=== PATIENT | male | born 1965 | race Caucasian/White ===

== ENCOUNTER 2018-09-11 10:56 | Outpatient (CLI) | payer OTHER ==
[2018-09-11 11:39] LABS: BASOPHILS % (AUTO) 0.5 % (0.0-2.0); EOSINOPHILS # (AUTO) 1.5 K/uL (0-0.4); EOSINOPHILS % (AUTO) 18.9 % (0.0-4.0); HEMATOCRIT 43.3 % (36-52); HEMOGLOBIN 14.8 g/dL (12.0-18.0); LYMPHOCYTES # (AUTO) 1.4 K/uL (2.0-11.5); MEAN CORPUSCULAR HEMOGLOBIN 31 pg (27-31); MEAN CORPUSCULAR HGB CONC 34 g/dL (33-37); MEAN CORPUSCULAR VOLUME 89.9 fL (80-94); MONOCYTES # (AUTO) 0.7 K/uL (0.8-1.0); MONOCYTES % (AUTO) 8.5 % (1.7-9.3); NEUTROPHILS # (AUTO) 4.3 K/uL (1.8-7.7); NEUTROPHILS % (AUTO) 54.1 % (42.2-75.2); PLATELET COUNT (AUTO) 318 K/uL (140-450); RED BLOOD CELL COUNT(AUTO) 4.82 MIL/uL (4.20-6.10); RED CELL DISTRIBUTION WIDTH 13.4 % (11.6-13.7); WHITE BLOOD COUNT (AUTO) 7.9 K/uL (4.8-10.8)
[2018-09-11 14:16] LABS: ALBUMIN 3.8 g/dL (3.4-5.0); ANION GAP 10.8 (8-16); CARBON DIOXIDE 27.6 mmol/L (21-32); CHOL/HDL RATIO 3.4 (1-4.5); CREATININE 0.9 mg/dL (0.7-1.3); POTASSIUM 4.4 mmol/L (3.5-5.1); TOTAL BILIRUBIN 0.5 mg/dL (0.0-1.0)
== END 2018-09-11 20:33 | disposition home or self-care (01) ==
LOC: MLB 10:56
PROVIDERS: ATTEND Internal Medicine Geriatric Medicine
DX: Z00.00 Encounter for general adult medical examination without abnormal findings (principal); L30.9 Dermatitis, unspecified
CPT/HCPCS: 36415; 80053; 85025; 85651; 86038; 86430

== ENCOUNTER 2018-10-18 18:53 | Emergency (ER) | payer OTHER ==
[~2018-10-18] VITALS: Ht 167.6 cm; Wt 73.9 kg
[2018-10-18 19:05] VITALS: BP 135/95
--- NOTE | 2018-10-18 19:09 | NUR ---
PT IN WHEELCHAIR TO ER BED 08
[2018-10-18] MEDS ORDERED: MORPHINE SULFATE 4 MG/ML SYR IM ONE (19:35)
--- NOTE | 2018-10-18 19:45 | NUR ---
PT BROUGHT TO ER C/O OF LEFT SHOULDER/CHEST/BACK PAIN THAT RADIATES TO LEFT HAND FOR 1 WEEK. PT DENIES ANY TRAUMA OR INJURY. PAIN LEVEL 10/10 SHARP/STABBING PAIN. PT HAS HX OF ASTHMA. SAFETY MEASURES IN PLACE. WILL CONTINUE TO MONITOR.
--- NOTE | 2018-10-18 20:14 | NUR ---
Patient discharged with v/s stable. PAIN LEVEL DECREASED TO 8/10. Written and verbal after care instructions given and explained. Patient alert, oriented and verbalized understanding of instructions. Ambulatory with steady gait. All questions addressed prior to discharge. ID band removed. Patient advised to follow up with PMD. Rx of NORCO WAS given. Patient educated on indication of medication including possible reaction and side effects. Opportunity to ask questions provided and answered.
[2018-10-18 20:15] VITALS: BP 135/95
== END 2018-10-18 20:14 | disposition home or self-care (01) ==
LOC: MED 18:53
DX: M54.2 Cervicalgia (principal); M25.512 Pain in left shoulder; J45.909 Unspecified asthma, uncomplicated
CPT/HCPCS: 96372; 99283; J2270

== ENCOUNTER 2018-10-20 15:43 | Outpatient (CLI) | payer OTHER ==
[2018-10-20 16:39] LABS: BASOPHILS # (AUTO) 0.1 K/uL (0.00-0.22); BASOPHILS % (AUTO) 0.3 % (0.0-2.0); EOSINOPHILS # (AUTO) 0.3 K/uL (0-0.4); EOSINOPHILS % (AUTO) 2.2 % (0.0-4.0); HEMATOCRIT 39.5 % (36-52); HEMOGLOBIN 13.4 g/dL (12.0-18.0); LYMPHOCYTES # (AUTO) 1.2 K/uL (2.0-11.5); LYMPHOCYTES % (AUTO) 7.8 % (20.5-51.1); MEAN CORPUSCULAR HEMOGLOBIN 30 pg (27-31); MEAN CORPUSCULAR HGB CONC 34 g/dL (33-37); MEAN CORPUSCULAR VOLUME 89.3 fL (80-94); MONOCYTES # (AUTO) 1.4 K/uL (0.8-1.0); MONOCYTES % (AUTO) 9.7 % (1.7-9.3); NEUTROPHILS # (AUTO) 11.9 K/uL (1.8-7.7); PLATELET COUNT (AUTO) 526 K/uL (140-450); RED BLOOD CELL COUNT(AUTO) 4.42 MIL/uL (4.20-6.10); RED CELL DISTRIBUTION WIDTH 13.2 % (11.6-13.7); WHITE BLOOD COUNT (AUTO) 14.8 K/uL (4.8-10.8)
[2018-10-22 19:58] LABS: ALDOLASE SERUM 5.2 U/L (1.2 - 7.6); ANTI-NUCLEAR ANTIBODY TITER Negative (Negative)
== END 2018-10-20 20:52 | disposition home or self-care (01) ==
LOC: MRD 15:43
PROVIDERS: ATTEND Internal Medicine Geriatric Medicine
DX: M25.512 Pain in left shoulder (principal)
CPT/HCPCS: 36415; 73030; 82085; 82550; 85025; 85613; 85651; 86038; 86140; 86430